=== PATIENT | female | born 2000 | race African-American/Black ===

== ENCOUNTER 2021-09-09 23:49 | Inpatient (IN) | payer SELFPAY ==
[2021-09-10 01:36] LABS: #Basophils 0.1 10x3/uL (0.0-0.2); #Eosinphils 0.5 10x3/uL (0.0-0.5); #Monocytes 1.4 10x3/uL (0.0-1.1); #Neutrophils 11.6 10x3/uL (1.5-8.4); %Basophils 0.6 % (0.0-2.0); %Eosinophils 3.1 % (0.0-6.0); %Lymphocytes 12.7 % (18.0-47.0); %Monocytes 9.1 % (0.0-10.0); %Neutrophils 73.7 % (40.0-75.0); Hemoglobin 10.2 g/dL (12.0-15.5); Mean Corpuscular HGB CONC 32.1 g/dL (32.0-36.0); Mean Corpuscular Hemoglobin 30.2 pg (27.0-33.0); Mean Corpuscular Volume 94.1 fl (81.6-98.3); Platelet Count 514 10x3/uL (150-450); Red Blood Cell (RBC) Count 3.38 10x6/uL (3.90-5.03); White Blood Cell (WBC) Count 15.8 10x3/uL (3.5-10.5)
[2021-09-10 01:37] LABS: BHCG - Serum Negative (NEGATIVE); Pregs Control Background? CLEAR/WHITE (CLR/WHITE); Pregs Control Bar Appear? YES (CONTROL BAR)
[2021-09-10 01:42] LABS: ALT (SGPT) 17 U/L (8-55); AST (SGOT) 16 U/L (5-34); Alkaline Phosphatase 79 U/L (40-100); Anion Gap 15 mmol/L (10-20); BUN (Urea Nitrogen) 17 mg/dL (7.0-18.7); Bilirubin, Total 0.2 mg/dL (0.2-1.2); Calc. Creatinine Clearance 0 mL/min (70-130); Calcium 10.1 mg/dL (7.8-10.44); Carbon Dioxide 20 mmol/L (22-29); Chloride 108 mmol/L (98-107); Globulin 4.6 g/dL (2.4-3.5); Glucose 100 mg/dL (70-105); Potassium 3.5 mmol/L (3.5-5.1); Protein, Total 8.6 g/dL (6.0-8.3); Sodium 139 mmol/L (136-145)
[2021-09-10 02:51] LABS: Bilirubin Neg (Negative); Blood, Urine 10 (Negative); Clarity Cloudy (Clear); Glucose, Urine (Dipstick) Normal (Negative); Ketone, Urine Negative (Negative); Leukocyte 500 (Negative); Nitrite Negative (Negative); Protein, Urine (Dipstick) 100 mg/dl (Neg-Trace); Specific Gravity, Urine 1.015 (1.002-1.036); Urobilinogen Normal mg/dL (Less than 2)
[2021-09-10 03:07] LABS: RBC/HPF 0-3 HPF (0-3); WBC/HPF 21-50 HPF (0-3)
[2021-09-10 03:08] LABS: Bacteria/HPF 4+ HPF (None Seen); Squamous Epithelial None Seen HPF (0-3)
[2021-09-10] MEDS ORDERED: cefTRIAXone\\ROCEPHIN 2 GM VIAL ONE (03:33)
[2021-09-10] MEDS ORDERED: Ondansetron ODT 4 MG TAB PO PRN (08:25)
[2021-09-10] MEDS ORDERED: Acetaminophen 650 MG Suppository PR PRN (08:25)
[2021-09-10] MEDS ORDERED: Ondansetron PF 4 MG/2 ML Vial IVP PRN (08:25)
[2021-09-10] MEDS ORDERED: Acetaminophen 325 MG TAB PO PRN (08:25)
[2021-09-10] MEDS ORDERED: cefTRIAXone\\ROCEPHIN 1 GM in Sodium Chloride 0.9% 100 ML IVPB SCH (08:30)
[2021-09-10 09:29] LABS: Magnesium 2.1 mg/dL (1.7-2.2)
[2021-09-10] MEDS ORDERED: Vancomycin HCl 1 GM in Sodium Chloride 0.9% 250 ML 250 ML IVPB SCH (09:30)
[2021-09-10] MEDS: Sodium Chloride 0.9% 1,000 ML IV SCH ×2 (11:51→19:54)
[2021-09-10 12:44] LABS: Carbamazepine-Tegretol Less than 1.9 ug/mL (4.0-12.0)
[2021-09-10 18:13] VITALS: BMI 25.8
[2021-09-10] MEDS ORDERED: levETIRAcetam in NS 1,000 MG in Premix Bag 1 BAG IVPB SCH (21:00)
[2021-09-10] MEDS ORDERED: Tacrolimus 1 MG CAP PO SCH (21:45)
[2021-09-10] MEDS: Cefepime 2 GM in Sodium Chloride 0.9% 100 ML IVPB SCH (22:28)
[2021-09-10] MEDS ORDERED: FLU VACC QS2021-22(6MOS UP)/PF 60 MCG/0.5 ML SYRINGE IM ONE (23:30)
[2021-09-11 05:29] LABS: #Basophils 0.1 10x3/uL (0.0-0.2); #Eosinphils 0.9 10x3/uL (0.0-0.5); #Neutrophils 6.5 10x3/uL (1.5-8.4); %Basophils 0.6 % (0.0-2.0); %Eosinophils 7.7 % (0.0-6.0); %Lymphocytes 24.8 % (18.0-47.0); %Monocytes 8.8 % (0.0-10.0); %Neutrophils 57.6 % (40.0-75.0); Hemoglobin 9.6 g/dL (12.0-15.5); Mean Corpuscular HGB CONC 30.5 g/dL (32.0-36.0); Mean Corpuscular Hemoglobin 29.9 pg (27.0-33.0); Mean Corpuscular Volume 98.1 fl (81.6-98.3); Mean Platelet Volume 8.9 fl (7.4-10.4); Platelet Count 457 10x3/uL (150-450); RBC Distribution Width 11.9 % (11.5-14.5); Red Blood Cell (RBC) Count 3.21 10x6/uL (3.90-5.03); White Blood Cell (WBC) Count 11.3 10x3/uL (3.5-10.5)
[2021-09-11 05:37] LABS: Anion Gap 12 mmol/L (10-20); BUN (Urea Nitrogen) 16 mg/dL (7.0-18.7); Calc. Creatinine Clearance 75 mL/min (70-130); Calcium 9.2 mg/dL (7.8-10.44); Carbon Dioxide 18 mmol/L (22-29); Chloride 114 mmol/L (98-107); Glucose 96 mg/dL (70-105); Potassium 3.8 mmol/L (3.5-5.1); Sodium 140 mmol/L (136-145)
[2021-09-11] MEDS: Sodium Chloride 0.9% 1,000 ML IV SCH ×2 (05:55→11:56)
[2021-09-11] MEDS ORDERED: Vancomycin HCl 750 MG in Sodium Chloride 0.9% 250 ML 250 ML IVPB SCH ×2 (06:00→23:59)
[2021-09-11] MEDS ORDERED: levETIRAcetam in NS 500 MG in Premix Bag 1 BAG IVPB SCH (08:10)
[2021-09-11] MEDS: Cefepime 2 GM in Sodium Chloride 0.9% 100 ML IVPB SCH (08:25)
[2021-09-11] MEDS ORDERED: Famotidine 20 MG TAB PO SCH (09:00)
[2021-09-11] MEDS: Tacrolimus 1 MG CAP PO SCH ×2 (11:33→21:20)
[2021-09-11] MEDS: Mycophenolate 250 MG CAP PO SCH ×2 (11:33→21:21)
[2021-09-11] MEDS: predniSONE 5 MG TAB PO SCH (11:34)
[2021-09-11] MEDS: OXcarbazepine 300 MG TAB PO SCH ×2 (12:08→21:20)
[2021-09-11] MEDS ORDERED: levETIRAcetam 500 MG in Sodium Chloride 0.9% 100 ML IVPB SCH (13:00)
[2021-09-11 15:34] LABS: SARS-CoV-2 PCR by NAA Not Detected (NotDetected)
[2021-09-11] MEDS: Famotidine 20 MG TAB PO SCH (21:21)
[2021-09-11] MEDS: levETIRAcetam 500 MG TAB PO SCH (21:21)
[2021-09-11 23:31] LABS: Vancomycin, Trough 5.2 ug/mL
[2021-09-12 04:23] LABS: #Basophils 0.1 10x3/uL (0.0-0.2); #Eosinphils 0.7 10x3/uL (0.0-0.5); #Monocytes 0.8 10x3/uL (0.0-1.1); #Neutrophils 5.6 10x3/uL (1.5-8.4); %Basophils 0.6 % (0.0-2.0); %Eosinophils 6.7 % (0.0-6.0); %Lymphocytes 32.9 % (18.0-47.0); %Monocytes 7.4 % (0.0-10.0); Hemoglobin 9.1 g/dL (12.0-15.5); Mean Corpuscular Hemoglobin 29.6 pg (27.0-33.0); Mean Corpuscular Volume 95.8 fl (81.6-98.3); Mean Platelet Volume 8.8 fl (7.4-10.4); Platelet Count 459 10x3/uL (150-450); RBC Distribution Width 12.1 % (11.5-14.5); Red Blood Cell (RBC) Count 3.07 10x6/uL (3.90-5.03); White Blood Cell (WBC) Count 10.8 10x3/uL (3.5-10.5)
[2021-09-12 04:32] LABS: Anion Gap 11 mmol/L (10-20); BUN (Urea Nitrogen) 10 mg/dL (7.0-18.7); Calc. Creatinine Clearance 83 mL/min (70-130); Calcium 9.3 mg/dL (7.8-10.44); Carbon Dioxide 19 mmol/L (22-29); Chloride 114 mmol/L (98-107); Glucose 90 mg/dL (70-105); Potassium 3.8 mmol/L (3.5-5.1); Sodium 140 mmol/L (136-145)
[2021-09-12] MEDS ORDERED: Folic Acid 1 MG TAB PO SCH (09:00)
[2021-09-12] MEDS: Mycophenolate 250 MG CAP PO SCH (09:13)
[2021-09-12] MEDS: OXcarbazepine 300 MG TAB PO SCH (09:13)
[2021-09-12] MEDS: Famotidine 20 MG TAB PO SCH (09:13)
[2021-09-12] MEDS: Tacrolimus 1 MG CAP PO SCH (09:13)
[2021-09-12] MEDS: predniSONE 5 MG TAB PO SCH (09:13)
[2021-09-12] MEDS: levETIRAcetam 500 MG TAB PO SCH (09:14)
[2021-09-12 09:19] VITALS: BP 101/57; TEMP 98.6
== END 2021-09-12 11:15 | disposition home or self-care (01) | DRG 100 ==
LOC: CSHERS 23:49 → CSHERHOLD 09-10 08:41 → CSHTELE 09-10 16:38
PROVIDERS: ADMIT Family Medicine; ATTEND Hospitalist
DX: G40.909 Epilepsy, unspecified, not intractable, without status epilepticus (principal); A41.9 Sepsis, unspecified organism; N13.6 Pyonephrosis; N17.9 Acute kidney failure, unspecified; D84.9 Immunodeficiency, unspecified; T86.12 Kidney transplant failure; Z20.822 Contact with and (suspected) exposure to COVID-19; N18.9 Chronic kidney disease, unspecified; K21.9 Gastro-esophageal reflux disease without esophagitis; B95.5 Unspecified streptococcus as the cause of diseases classified elsewhere; Y83.0 Surgical operation with transplant of whole organ as the cause of abnormal reaction of the patient, or of later complication, without mention of misadventure at the time of the procedure; Z79.899 Other long term (current) drug therapy
CPT/HCPCS: 36415; 70551; 76775; 80048; 80053; 80156; 80177; 80197; 80202; 81003; 81015; 83605; 83735; 84703; 85025; 87040; 87077; 87086; 93005; 94760; J0692; J0696; J1953; J3370; J3490; J7050; J7507; J7512; J7517; U0003; U0005